=== PATIENT | female | born 1980 | race Caucasian/White ===

== ENCOUNTER 2018-10-23 10:55 | Emergency (ER) | payer SELFPAY ==
[2018-10-23] MEDS ORDERED: Diazepam 5 MG TAB ONE (11:27)
[2018-10-23] MEDS ORDERED: Ondansetron ODT 4 MG TAB ONE (11:31)
--- NOTE | 2018-10-23 12:04 | RAD ---
LEFT HIP 2 VIEWS: Date: 10/23/18 HISTORY: Pain. FINDINGS: No fracture, dislocation, or other acute process. IMPRESSION: Unremarkable left hip. POS: DEREK
[2018-10-23] MEDS ORDERED: Morphine 4 MG/ML VIAL ONE ×2 (13:06→17:14)
[2018-10-23] MEDS ORDERED: Dexamethasone 4 mg/ml Vial ONE (14:21)
[2018-10-23] MEDS ORDERED: Ketorolac Tromethamine 30 MG/ML VIAL ONE (14:22)
[2018-10-23 15:02] LABS: Bilirubin Negative (Negative); Blood, Urine Negative (Negative); Clarity Clear (Clear); Glucose, Urine (Dipstick) Normal (Negative); Leukocyte Negative Leu/uL (Negative); Nitrite Negative (Negative); Protein, Urine (Dipstick) Negative (Neg-Trace); Urobilinogen Normal mg/dL (Less than 2)
--- NOTE | 2018-10-23 17:45 | ULT ---
VENOUS DOPPLER ULTRASOUND LEFT LOWER EXTREMITY: History: Left lower extremity pain. Technique: Grayscale, color flow, and spectral doppler imaging of the deep venous system of the left lower extremity was performed. FINDINGS: There is good flow, compression, and augmentation in the left common femoral, femoral, deep femoral, popliteal and posterior tibial, and greater saphenous vein. IMPRESSION: No evidence of DVT in the left lower extremity. POS: DEREK
== END 2018-10-23 18:06 | disposition home or self-care (01) ==
LOC: ERS 10:55
DX: M25.552 Pain in left hip (principal)
CPT/HCPCS: 81003; 96374; 96375; 96376; J1100; J1885; J2270; Q0162

== ENCOUNTER 2018-10-24 16:19 | Inpatient (IN) | payer SELFPAY ==
[2018-10-24] MEDS ORDERED: Morphine 4 MG/ML VIAL ONE ×2 (17:16→20:17)
[2018-10-24] MEDS ORDERED: Ondansetron PF 4 MG/2 ML Vial ONE ×2 (17:16→23:24)
[2018-10-24 18:34] LABS: BHCG - Serum Negative (NEGATIVE); Pregs Control Background? CLEAR/WHITE (CLR/WHITE); Pregs Control Bar Appear? YES (CONTROL BAR)
[2018-10-24] MEDS ORDERED: Ketorolac Tromethamine 30 MG/ML VIAL ONE (18:47)
--- NOTE | 2018-10-24 20:04 | CT ---
LUMBAR SPINE CT WITHOUT IV CONTRAST: History: Low back pain. FINDINGS: No evidence for acute fracture or dislocation. Disc osteophytosis changes at L5-S1 with some indentio n of the ventral thecal sac. There is some associated bilateral foraminal stenosis. In the right pelvis there is a somewhat heterogeneous attenuation mass measuring 3.6 x 5.0 cm which a ppears to have some fluid or cystic component as well as a 1.5 cm diameter fatty component, evidence for a cystic dermoid or teratoma involving the right adnexa. IMPRESSION: No acute fracture or dislocation. Disc disease at L5-S1. Evidence for a right cystic dermoid or terat monty. POS: RRE
--- NOTE | 2018-10-24 22:42 | ULT ---
TRANSABDOMINAL AND TRANSVAGINAL PELVIC ULTRASOUND WITH GRAYSCALE, COLOR FLOW, AND SPECTRAL DOPPLER IM AGING: History: Abdominal CT scan of same date. FINDINGS: The uterus measures 10.7 x 4.4 x 6.5 cm without focal mass. The endometrium measures 13 mm in thickne ss. The left ovary measures 3.7 x 2.5 x 1.9 cm. The right ovary measures 4.8 x 4.2 x 4.5 cm. Flow is demo nstrated to both ovaries. A complex right ovary mass is present measuring 3.7 cm. The fatty component noted on the CT scan is not satisfactorily visualized on this study. IMPRESSION: Findings are suggestive of right ovarian dermoid. Further evaluation with pelvic MRI with and without contrast would be helpful. POS: DEREK
[2018-10-24 23:33] LABS: #Monocytes 0.1 thou/uL (0.11-0.59); #Neutrophils 9.4 thou/uL (1.40-6.50); %Basophils 0.1 % (0.0-1.0); %Eosinophils 0.1 % (0.0-10.0); %Lymphocytes 9.4 % (21.0-51.0); %Monocytes 0.6 % (0.0-10.0); %Neutrophils 89.7 % (42.0-75.0); Hemoglobin 12.3 g/dL (12.0-16.0); Mean Corpuscular HGB CONC 33.6 g/dL (32.0-36.0); Mean Corpuscular Hemoglobin 28.6 pg (27.0-31.0); Mean Corpuscular Volume 85.2 fL (78.0-98.0); Mean Platelet Volume 9.1 fL (7.4-10.4); Platelet Count 288 thou/uL (130-400); Red Blood Cell (RBC) Count 4.31 mill/uL (4.20-5.40); White Blood Cell (WBC) Count 10.5 thou/uL (4.8-10.8)
[2018-10-24] MEDS ORDERED: Ondansetron PF 4 MG/2 ML Vial IVP PRN (23:47)
[2018-10-24] MEDS ORDERED: Ondansetron ODT 4 MG TAB SL PRN (23:47)
[2018-10-24 23:48] LABS: ALT (SGPT) 23 U/L (8-55); AST (SGOT) 21 U/L (5-34); Albumin 4.2 g/dL (3.5-5.0); Alkaline Phosphatase 64 U/L (40-150); Anion Gap 13 mmol/L (10-20); BUN (Urea Nitrogen) 16 mg/dL (7.0-18.7); Bilirubin, Total 0.2 mg/dL (0.2-1.2); Calc. Creatinine Clearance 0 mL/min (70-130); Calcium 9.6 mg/dL (7.8-10.44); Carbon Dioxide 25 mmol/L (22-29); Chloride 105 mmol/L (98-107); Estimated GFR-MDRD 77; Globulin 3.1 g/dL (2.4-3.5); Glucose 100 mg/dL (70-105); Potassium 3.7 mmol/L (3.5-5.1); Protein, Total 7.3 g/dL (6.0-8.3); Sodium 139 mmol/L (136-145)
[2018-10-25] MEDS: Morphine 2 MG/ML SYRINGE SLOW IVP PRN ×4 (00:15→06:26)
[2018-10-25 00:44] VITALS: BMI 32.3
[2018-10-25] MEDS ORDERED: Ondansetron ODT 4 MG TAB PO PRN (08:13)
[2018-10-25] MEDS: Enoxaparin Sodium 40 MG/0.4 ML SYRINGE SC SCH (08:35)
[2018-10-25] MEDS: Morphine 4 MG/ML VIAL SLOW IVP PRN ×4 (08:35→21:50)
[2018-10-25] MEDS: Lidocaine 5% Patch TD SCH (09:23)
--- NOTE | 2018-10-25 10:11 | HP ---
PRIMARY CARE PHYSICIAN: None. CHIEF COMPLAINT: Intractable lower back, hip and leg pain. HISTORY OF PRESENT ILLNESS: Ms. Engle is a 38-year-old female without any past medical history, who had presented to [facility] late last night with an intractable lower back pain, left hip pain, and left leg pain. She was recently seen in the ER roughly 2 nights ago for this as well. She underwent an x-ray of her left hip, which was unremarkable. She also underwent an ultrasound of the left leg, which showed no evidence of DVT at that time. She was treated with various medications and this had seemed to improve. She was then stabilized and discharged home on naproxen, Medrol Dosepak, and Lidoderm patch along with Valium. She states throughout that next day, pain actually worsened. Therefore, she was re-seen in the ED late last night. She underwent a lumbar spine CT, which revealed no acute fracture or dislocation; however, did show some disk disease at L5 and S1 and evidence of a right cystic dermoid or teratoma noted. Transvaginal pelvic ultrasound showed findings suggestive of a right ovarian dermoid and had recommended a pelvic MRI with and without contrast for further evaluation. The patient was treated with IV morphine, Zofran, and Toradol in the ED late last night, which had seemed to help with her symptoms. She had denied any fever or chills; any headache, blurred vision, or dizziness; any chest pain, palpitations, shortness of breath, abdominal pain, nausea, or vomiting. She was actually complaining of 8/10 pain that started in her lower back and then radiated to the left hip and down the left leg. She states that she and her mother and her two daughters went on a [place] trip last month and were there for roughly 9 days as they were hiking and exploring the area. She states that the pain started roughly September 18; however, gradually got better for a few days while she was at work. However, over the last 4 to 5 days, she states that the pain worsened and has not let out. REVIEW OF SYSTEMS: All other systems reviewed and found to be negative unless mentioned in the HPI. PAST MEDICAL HISTORY: None. PAST SURGICAL HISTORY: section x2. PAST PSYCHIATRIC HISTORY: None. SOCIAL HISTORY: The patient denies alcohol, tobacco, or illicit drug use. She lives at home with her family. KNOWN ALLERGIES: Codeine and penicillin. CURRENT HOME MEDICATIONS: 1. Naproxen 500 mg oral twice daily p.r.n. pain. 2. Medrol Dosepak, which she actually did not finish. 3. Lidoderm patch topical daily. 4. Valium 5 mg oral every 8 hours as needed for muscle spasm. PHYSICAL EXAMINATION: VITAL SIGNS: BP 120/75, pulse 75, respirations 16, temp 98, O2 saturation 99% on room air. GENERAL: The patient is awake, alert, and oriented x3. She is currently lying comfortably in bed and in moderate distress due to pain and her mother is at bedside. HEENT: Atraumatic, normocephalic. Pupils are round and reactive to light. Extraocular muscles intact. Moist mucous membranes noted. NECK: Soft and supple. Trachea midline. CARDIOVASCULAR: Positive S1 and S2. Regular rate and rhythm. No murmur auscultated. RESPIRATORY: Clear to auscultation bilaterally. No wheezes, rales, or rhonchi. ABDOMEN: Soft, nontender. Bowel sounds present. MUSCULOSKELETAL: Strength 5+ bilaterally upper and lower extremities. She appears to be in quite a bit of pain, pain to palpation over left hip, and she is unable to move left leg due to pain. NEUROLOGIC: Cranial nerves 2 through 12 grossly intact. No deficits noted. Speech intact and normal. Gait not assessed. SKIN: Warm, dry, and intact. No rashes. No ulceration noted. PSYCHIATRIC: Good mood and affect. LABORATORY DATA: WBC 10.5, RBC 4.31, hemoglobin 12.3, platelets 288. Sodium 139, potassium 3.7, anion gap 13, BUN 16, creatinine 0.83, estimated GFR 77, glucose 100, AST 21, ALT 23. Serum negative. DIAGNOSTIC IMAGING STUDIES: CT spine without contrast showed no acute fracture or dislocation; however, did show some disk disease at L5-S1 with evidence of right cystic dermoid or teratoma noted. Pelvic transvaginal ultrasound showed findings of a right ovarian dermoid and had recommended further evaluation with pelvic MRI with and without contrast. Diagnostic imaging from 10/23/2018, venous Doppler showed no evidence of DVT. A left hip x-ray was unremarkable. ASSESSMENT/PLAN: 1. Intractable lower back and left hip pain. She will be managed with her current pain regimen including IV morphine 4 mg q.4 hours IV Toradol 30 mg and topical lidocaine patch daily. 2. Ovarian dermoid. We will order an MRI with and without contrast of the pelvis for further evaluation. She will likely also benefit from an COMPLIANCE PARALEGAL consult in the near future. 3. Deep venous thrombosis and gastrointestinal prophylaxis. 4. Code status, full code. DISPOSITION: Pending further workup and clinical findings. However, the patient will likely be discharged in the next 1 to 2 days home with close outpatient followup, she will also need further resources for possible PCPs in the area for followup. Job ID: [id number]
[2018-10-25] MEDS: Ketorolac Tromethamine 30 MG/ML VIAL IVP PRN (11:49)
[2018-10-25] MEDS: Acetaminophen 325 MG TAB PO PRN ×2 (11:49→17:24)
--- NOTE | 2018-10-25 12:49 | MRI ---
MRI OF THE PELVIS WITH AND WITHOUT CONTRAST: INDICATION: History of uterine dermoid. COMPARISON: Pelvic ultrasound dated October 24, 2018. FINDINGS: There is a complex 5.9 x 4.4 cm cystic mass involving the right adnexa with a component that has inte rnal fat signal measuring 2.3 cm. This lesion has internal fat signal through all pulse and sequences. Findings are consistent with a dermoid cyst. There is susceptibility artifact along the an terior aspect of the lower uterine body likely related to prior or surgical intervention in this region. There are numerous nabothian cysts within the cervix. No focal uterine mass is eviden t. Left ovary demonstrates multiple small follicles. No pathologically enlarged lymph node is grossly evident. No free fluid is noted. There is a mild amount retained stool within the rectum. No signal abnormality or region of abnormal enhancement is noted within the visualized bony structures. IMPRESSION: Complex cystic mass of the right adnexa demonstrates imaging characteristics most consistent with a d ermoid cyst. Transcribed Date/Time: 10/25/2018 1:24 PM
[2018-10-25] MEDS: Ondansetron PF 4 MG/2 ML Vial IVP PRN ×2 (12:58→20:19)
[2018-10-25] MEDS ORDERED: HYDROcodone/Acetaminophen 5/325 mg Tablet PO PRN (14:10)
[2018-10-25] MEDS: Lidocaine Patch Removal 1 EACH TOP SCH (20:20)
[2018-10-26] MEDS: Morphine 4 MG/ML VIAL SLOW IVP PRN ×5 (03:10→20:05)
[2018-10-26] MEDS: Ondansetron PF 4 MG/2 ML Vial IVP PRN ×2 (03:15→11:59)
[2018-10-26] MEDS: Acetaminophen 325 MG TAB PO PRN ×2 (05:50→09:49)
[2018-10-26 06:01] LABS: #Eosinphils 0.2 thou/uL (0.0-0.7); #Lymphocytes 1.9 thou/uL (1.20-3.40); #Monocytes 0.5 thou/uL (0.11-0.59); #Neutrophils 3.1 thou/uL (1.40-6.50); %Basophils 0.6 % (0.0-1.0); %Eosinophils 4.2 % (0.0-10.0); %Lymphocytes 32.5 % (21.0-51.0); %Monocytes 8.6 % (0.0-10.0); %Neutrophils 54.1 % (42.0-75.0); Hemoglobin 11.2 g/dL (12.0-16.0); Mean Corpuscular HGB CONC 32.1 g/dL (32.0-36.0); Mean Corpuscular Hemoglobin 27.6 pg (27.0-31.0); Mean Corpuscular Volume 86.1 fL (78.0-98.0); Mean Platelet Volume 8.8 fL (7.4-10.4); Platelet Count 273 thou/uL (130-400); RBC Distribution Width 13.8 % (11.5-14.5); Red Blood Cell (RBC) Count 4.04 mill/uL (4.20-5.40); White Blood Cell (WBC) Count 5.8 thou/uL (4.8-10.8)
[2018-10-26 06:26] LABS: Anion Gap 12 mmol/L (10-20); BUN (Urea Nitrogen) 12 mg/dL (7.0-18.7); Calc. Creatinine Clearance 144 mL/min (70-130); Calcium 9.4 mg/dL (7.8-10.44); Carbon Dioxide 26 mmol/L (22-29); Chloride 103 mmol/L (98-107); Estimated GFR-MDRD 86; Glucose 79 mg/dL (70-105); Potassium 3.4 mmol/L (3.5-5.1); Sodium 138 mmol/L (136-145)
[2018-10-26] MEDS: Lidocaine 5% Patch TD SCH (09:00)
[2018-10-26] MEDS: Enoxaparin Sodium 40 MG/0.4 ML SYRINGE SC SCH (09:00)
--- NOTE | 2018-10-26 11:34 | PDOC.HOSPP ---
- Subjective Encounter Date: 10/26/18 Encounter Time: 11:20 Subjective: Back pain with lumbar radiculopathy unchanged. Pain 10/10, worse with movement , better with rest, unable to bear weight left leg. Pain associated with constant nausea. No saddle anesthesia, no incontinence of bowel or bladder, no fever. Pain extends into foot, sharp and lancillating in nature. - Objective Vital Signs & Weight: Vital Signs (12 hours) Temp Pulse Resp BP Pulse Ox 10/26/18 11:12 98.4 F 69 15 130/79 94 L 10/26/18 07:45 98 10/26/18 07:25 98.6 F 63 18 134/81 98 10/26/18 02:51 98.5 F 76 16 145/86 H 97 10/25/18 23:36 99 F 69 16 124/84 96 Weight Weight 200 lb I&O: 10/25/18 10/26/18 10/27/18 06:59 06:59 06:59 Intake Total 510 486 Balance 510 486 Result Diagrams: 10/26/18 05:45 10/26/18 05:45 Hospitalist ROS - Medication Medications: Active Medications Generic Name Dose Route Start Last Admin Trade Name Freq PRN Reason Stop Dose Admin Acetaminophen 650 mg 10/25/18 08:13 10/26/18 09:49 Tylenol PO 650 mg Q4H PRN Administration Headache/Fever/Mild Pain (1-3) Hydrocodone Bitart/Acetaminophen 1 tab 10/25/18 14:10 10/25/18 14:42 [place] 5/325 PO 1 tab Q4H PRN Administration Pain Enoxaparin Sodium 40 mg 10/25/18 09:00 10/26/18 09:00 Lovenox SC 40 mg 0900 FERNANDO Administration Ketorolac Tromethamine 30 mg 10/25/18 08:15 10/25/18 11:49 Toradol IVP 10/30/18 08:16 30 mg Q6H PRN Administration Pain Lidocaine 1 patch 10/25/18 09:00 10/26/18 09:00 Lidoderm 5% Patch TD Not Given DAILY [facility] [place] Miscellaneous Medication 1 each 10/25/18 21:00 10/25/18 20:20 Lidocaine Patch Removal TOP 1 each 2100 FERNANDO Administration Morphine Sulfate 4 mg 10/25/18 08:14 10/26/18 07:46 Morphine SLOW IVP 4 mg Q4H PRN Administration Pain Ondansetron HCl 4 mg 10/25/18 08:13 10/26/18 03:15 Zofran IVP 4 mg Q6H PRN Administration Nausea/Vomiting - Exam General - other findings: Uncomfortable, writhing in pain Eye: scleral icterus ENT: no oropharyngeal lesions Neck: supple, symmetric Heart: RRR Respiratory: CTAB Gastrointestinal: soft, non-tender Extremities: no edema Skin: no rashes Neurological: normal sensation to touch Neurological - other findings: Limited plantar flexion left foot secondary to pain. Sensation intact Psychiatric: A&O x 3 Hosp A/P (1) Lumbar radiculopathy, acute Code(s): M54.16 - RADICULOPATHY, LUMBAR REGION Status: Acute (2) Dermoid cyst Code(s): D36.9 - BENIGN NEOPLASM, UNSPECIFIED SITE Status: Acute (3) Nausea Code(s): R11.0 - NAUSEA Status: Acute - Plan plan discussed w/ family Acute/severe lumbar radiculopathy - MRI Lumbar/Sacral spine with/without; pending results, may need input of NS and/or pain. Continue medical trial to alleviate pain, try robaxin. Steroids were given from ED visit as well. Trial decadron. Nausea secondary to pain, treat symptomatically. No red flag symptoms on history giving. 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
[2018-10-26] MEDS ORDERED: Dexamethasone 10 MG in Sodium Chloride 0.9% 50 ML IVPB SCH (12:30)
--- NOTE | 2018-10-26 14:11 | MRI ---
MR OF THE LUMBAR SPINE WITH AND WITHOUT IV CONTRAST: 10/26/18 INDICATION: Increase in low back pain with radiation of the left hip down the left leg for two to three weeks wit hout history of surgery. CONTRAST: 20 mL of Multihance was utilized for the exam. The visualized aspects of the retroperitoneum and perivertebral soft tissues appear within normal thurman its. Bone marrow signal intensity appears within normal limits. At L5-S1, there is a broad based bulge with a superimposed left paracentral protrusion. The protrusio n measures approximately 1 cm in AP dimension and likely contacts and mildly displaces posteriorly t he traversing left S1 nerve root. There is mild to moderate bilateral neural foraminal narrowing due to the broad based disc bulge and facet hypertrophy at this level. At the L4-5 level, there is no appreciable central canal or neural foraminal narrowing. At L3-4, there is no appreciable central canal or neural foraminal narrowing. At L2-3, there is no appreciable central canal or neural foraminal narrowing. At L1-2, there is no appreciable central canal or neural foraminal narrowing. At T12-L1, there is a left cephalad extending paracentral disc extrusion measuring approximately 1.4 cm in its greatest craniocaudad dimension causing mild effacement of the left ventral aspect of the s ubarachnoid space without definite conus impingement. No neural foraminal narrowing is evident. There is no abnormal enhancement. IMPRESSION: 1. Large left paracentral disc protrusion at L5-S1 contacting the left S1 nerve root and displac ing the nerve root posteriorly. 2. Mild to moderate bilateral neural foraminal narrowing at L5-S1. 3. Left paracentral cephalad extending disc extrusion at T12-L1 with mild ventral effacement of the subarachnoid space without definite conus compression. POS: TPC
[2018-10-26] MEDS: Methocarbamol 500 MG TAB PO PRN ×2 (14:52→21:01)
[2018-10-26] MEDS ORDERED: Gadobenate Dimeglumine 529 MG/1 ML (20ML VIAL) ONE (16:50)
[2018-10-26] MEDS: Lidocaine Patch Removal 1 EACH TOP SCH (20:11)
[2018-10-27] MEDS: Morphine 4 MG/ML VIAL SLOW IVP PRN ×3 (01:33→09:25)
[2018-10-27] MEDS: Methocarbamol 500 MG TAB PO PRN (02:57)
[2018-10-27] MEDS ORDERED: Dexamethasone 10 MG in Sodium Chloride 0.9% 50 ML IVPB SCH (09:00)
[2018-10-27] MEDS: Lidocaine 5% Patch TD SCH (09:19)
[2018-10-27] MEDS ORDERED: Iopamidol-M 200 41% 20 ML VIAL ONE (10:00)
[2018-10-27] MEDS ORDERED: Bupivacaine 0.25% 10 ML VIAL ONE (10:00)
[2018-10-27] MEDS ORDERED: Lidocaine 2% MPF 10 ML AMP (For Epidural Use) ONE (10:00)
[2018-10-27] MEDS ORDERED: Sodium Chloride 0.9% (PF) 10 ML VIAL ONE (10:00)
[2018-10-27] MEDS ORDERED: tiZANidine HCl 4 MG TAB PO PRN (11:37)
[2018-10-27] MEDS ORDERED: Morphine 2 MG/ML SYRINGE SLOW IVP PRN (11:39)
[2018-10-27] MEDS ORDERED: Diazepam 5 MG TAB PO PRN (12:20)
--- NOTE | 2018-10-27 12:52 | CON ---
DATE OF CONSULTATION: Ms. Engle is a 38-year-old woman, who was admitted yesterday for severe intractable left-sided back pain and radicular left lower extremity pain. This primarily courses through her left buttocks and into the posterior thigh down the calf and into the bottom of the foot. This fits well in S1 pattern of radiculopathy. She did have an MRI performed in-house yesterday, which reveals a small left eccentric disk herniation that is displacing the descending S1 nerve root. By no means, this is a large disk, but it does well explain the symptoms that she is experiencing. She states this onset was around the end of August this year after a vacation and then improved, but over the last week has returned and she has already had one ER visit before yesterday's for the same symptoms. This morning, she is lying in bed the bed rails and in obvious pain. Lying back seems to be what helps her the most with her symptoms. She has a cooling pack in the left leg as well as sizing of this seems to help. She is unable to perform her motor exam for me secondary to pain, but does show me that she can wiggle her toes and dorsiflex and plantar flex. The strength is not tested again secondary to severe pain. She has been sedated with 5 mg [place] q.4 hours as well as morphine q.4 hours. In the past, she received Decadron daily. I do think perhaps that she could have a little more while in terms of the [place] dosage to see if she can have better pain control there, but best recommend a consultation with the Pain Service, which has already been ordered for potential epidural steroid injection to the left at L5. I truly think that this would be of the most benefit for her both in the acute setting and long-term as again this is a smaller disk herniation and certainly may not need surgical intervention. I did discuss with them the possibility of needing surgery if things fail, at which point we may perform in the outpatient setting a left L5 diskectomy. Plan will be to have her hopefully visit with Pain today, potentially receive an epidural steroid injection and then we can follow up in the clinic. Job ID: [id number]
--- NOTE | 2018-10-27 17:03 | PDOC.HOSPP ---
- Subjective Encounter Date: 10/27/18 Encounter Time: 16:25 Subjective: Patient seen following ANGEL. Appreciate all consultants care. Pain /, has not yet walked. No nausea presently. Reports nausea with Jackson. Tramadol previously did not help her. Reports some interval relief with muscle relaxers, hopes to schedule these to maintain current pain level overnight. - Objective Vital Signs & Weight: Vital Signs (12 hours) Temp Pulse Resp BP Pulse Ox 10/27/18 15:01 98.5 F 71 20 99/65 94 L 10/27/18 11:44 97.8 F 68 16 135/87 93 L 10/27/18 07:37 98.6 F 72 16 130/79 93 L Weight Weight 200 lb I&O: 10/26/18 10/27/18 10/28/18 06:59 06:59 06:59 Intake Total 486 1800 Balance 486 1800 Result Diagrams: 10/26/18 05:45 10/26/18 05:45 Hospitalist ROS - Medication Medications: Active Medications Generic Name Dose Route Start Last Admin Trade Name Freq PRN Reason Stop Dose Admin Acetaminophen 650 mg 10/25/18 08:13 10/26/18 09:49 Tylenol PO 650 mg Q4H PRN Administration Headache/Fever/Mild Pain (1-3) Ketorolac Tromethamine 30 mg 10/25/18 08:15 10/25/18 11:49 Toradol IVP 10/30/18 08:16 30 mg Q6H PRN Administration Pain Lidocaine 1 patch 10/25/18 09:00 10/27/18 09:19 Lidoderm 5% Patch TD 1 patch DAILY FERNANDO Administration Miscellaneous Medication 1 each 10/25/18 21:00 10/26/18 20:11 Lidocaine Patch Removal TOP Not Given 2100 FERNANDO Morphine Sulfate 4 mg 10/25/18 08:14 10/27/18 09:25 Morphine SLOW IVP 4 mg Q4H PRN Administration Pain Morphine Sulfate 2 mg 10/27/18 11:39 10/27/18 12:31 Morphine SLOW IVP 10/27/18 18:00 2 mg ONE PRN Administration PRIOR TO TRANSPORT Ondansetron HCl 4 mg 10/25/18 08:13 10/26/18 11:59 Zofran IVP 4 mg Q6H PRN Administration Nausea/Vomiting Sodium Chloride 10 ml 10/26/18 21:00 10/27/18 09:26 Flush - Normal Saline IVF 10 ml Q12HR FERNANDO Administration - Exam General - other findings: Resting, calm, reasonably comfortable, room dark. Eye: PERRL ENT: normocephalic atraumatic Neck: supple Heart: RRR Respiratory: CTAB Gastrointestinal: soft, non-tender Extremeties - other findings: Able to plantar flex today, though still with pain Skin: no rashes Neurological: no weakness, no new deficit Hosp A/P (1) Lumbar radiculopathy, acute Code(s): M54.16 - RADICULOPATHY, LUMBAR REGION Status: Acute (2) Dermoid cyst Code(s): D36.9 - BENIGN NEOPLASM, UNSPECIFIED SITE Status: Acute (3) Nausea Code(s): R11.0 - NAUSEA Status: Acute - Plan Acute/severe lumbar radiculopathy - MRI Lumbar/Sacral spine reviewed, appreciate NS input and pain management input with ANGEL. Presently on lyrica, percocet, tizanidine (will schedule for next several doses) , morphine for breakthrough, toradol available. Zofran helpful for her. Consult PT in AM. 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 Remains in observation status, goal home 10/28
[2018-10-27] MEDS: oxyCODONE/Acetaminophen 5 mg/325 mg Tablet PO PRN ×2 (17:13→21:21)
[2018-10-27] MEDS: tiZANidine HCl 4 MG TAB PO SCH ×2 (17:13→23:37)
--- NOTE | 2018-10-27 18:56 | OP ---
DATE OF PROCEDURE: 10/27/2018 PROCEDURES PERFORMED: Left L5 and S1 transforaminal epidural steroid injection under fluoroscopic guidance. DESCRIPTION OF PROCEDURE: Informed consent: The patient was advised of the procedure and informed of potential complications including pain, infection, drug reaction, and bleeding. The patient denied recent infection or fever, use of any recent anticoagulation or . Prep: The patient was placed in a prone position on fluoroscopy table. Fluoroscopic guidance was used to identify the appropriate spinal levels as noted above. Hibiclens was used topically for antisepsis. Anesthesia provided with 1% lidocaine locally. Procedures performed at the L5 and S1 levels on the left side. Procedure: A 25-gauge Chiba needle was passed to the foramen using an oblique approach. A lateral view was checked to determine needle depth and advanced to superior posterior aspect of the foramen. In AP projection, confirmed placement just below the midline pedicle. Contrast 2 mL was injected to confirm proper placement. Depo-Medrol 80 mg, 1 mL of 0.25% Marcaine, and preservative free normal saline, total volume 6 mL was injected easily and equally amongst the two levels. Postprocedure, the patient tolerated the procedure well without any complication. Job ID: [id number]
[2018-10-27] MEDS: Lidocaine Patch Removal 1 EACH TOP SCH (20:03)
[2018-10-27] MEDS: Pregabalin 75 MG CAP PO SCH (20:03)
--- NOTE | 2018-10-28 00:46 | CON ---
DATE OF CONSULTATION: 10/27/2018 SERVICE: Pain Management. REASON FOR CONSULTATION: Intractable left-sided low back pain associated with left leg pain. HISTORY OF PRESENT ILLNESS: Ms. Engle is a 38-year-old female with no significant past medical history, who was admitted through the emergency room services on 10/24/2018 for intractable low back pain associated with left lower extremity leg pain, which was limiting functional activities at home. The patient reports on September 18, she noticed an increasing low back pain suddenly that was associated with some left lateral hip pain and intermittent leg pain that started after a long car ride on vacation. The pain seemed to subside in the next few weeks; however, approximately one week ago on October 22, the pain recurred and was severe. She was not able to stand or walk secondary to the pain. She reports the pain was sharp, stabbing, constant, and radiating from the left lower lumbar towards the left lateral hip down the posterior left leg all the way into the bottom of the left foot. She was unable to bear weight on the left leg secondary to the pain and weakness and is still limited to ambulation and standing. She denies any bowel or bladder dysfunction. No progressive neurological deficits were reported and no recent falls or acute trauma is reported. She was evaluated in the ER and sent home with oral steroids as well as NSAIDs and muscle relaxants with no relief. The pain became severe and she returned to the emergency room the next day thus leading to her current admission. Lumbar MRI has been performed, which indicates left paracentral disk protrusion at L5-S1 that is likely contacting the left S1 nerve root and displacing the nerve root posteriorly, there is also some mild to moderate bilateral neuroforaminal narrowing at L5-S1. Neurosurgery has been consulted and has seen the patient already, has been recommended for interventional epidural treatment and attempt for pain control prior to any surgical intervention. The patient is evaluated today in her bed. She appears to be extremely uncomfortable. She lays flat and is almost tearful due to her pain. Her mother is with her to assist with history of present illness and also with her care. She is currently getting IV morphine 4 mg IV push as needed, which she reports this provides some relief; however, it is not lasting for her. She has been medicated with oral hydrocodone x1 and reports this made her nauseated. Muscle relaxants have been ordered, Robaxin, but not administered yet. She is getting IV steroids as well. Her pain is reported at 10/10 and is constant. She has not been able to get up out of bed secondary to the pain and weakness. REVIEW OF SYSTEMS: Ten-point review of systems was completed, negative except for pertinent positive in the history of present illness above. PAST MEDICAL HISTORY: Negative. PAST SURGICAL HISTORY: She has had a section x2. PAST SOCIAL HISTORY: The patient denies any alcohol use, no tobacco use or illicit drug use. She lives at home with her family and has children. ALLERGIES: INCLUDE CODEINE AND PENICILLIN. MEDICATIONS: Current medications are reviewed, pain medications below 1. IV morphine. 2. Oral hydrocodone. 3. Robaxin has been ordered, not administered for her pain. PHYSICAL EXAMINATION: VITAL SIGNS: Blood pressure is 130/79, heart rate is 93, respirations 16, and temperature is 98.6. GENERAL APPEARANCE: The patient is awake, alert, and oriented x3. Her mother is at her bedside. She is lying flat in bed, gripping the handrails, appears to be in severe pain, tearful. HEENT: Atraumatic, normocephalic. CARDIOVASCULAR: No peripheral edema. Pulses are palpable in all extremities. RESPIRATORY: Bilateral, equal lung expansion with no respiratory distress on exam, no labored breathing. ABDOMEN: Soft, nontender, nondistended. MUSCULOSKELETAL: The patient is able to logroll with assist onto her right side for exam, lumbar spine with normal curvature of spine, no vertebral spine tenderness on exam, there is severe paraspinal tenderness greater on the left versus right, no SI joint tenderness, positive straight leg raise on the left from the supine position. Right lower extremity strength 5/5, left straight leg raise against resistance 3 /5. There is pain on the left dorsiflexion and plantar flexion with some limitations in strength, 4/5. Sensation to temperature and touch bilaterally is equal to lower extremities and intact. Gait is not assessed due to her pain and immobility. Reflex is not assessed. The patient unable to sit in the side of the bed. Bilateral upper extremity strength is 5/5. NEUROLOGIC: The patient is alert and oriented x3, no clonus, no sensory or neurological deficits. IMAGING: Includes lumbar MRI which indicates left paracentral disk protrusion at L5-S1, which appears to be contacting the left S1 nerve root with possible displacement of the nerve root posteriorly. There is mild to moderate bilateral neuroforaminal narrowing at L5-S1, also noticed a left paracentral cephalad extending disk extrusion at the T12-L1. ASSESSMENT AND PLAN: Lumbar radicular pain in the left L5-S1 dermatomal distribution with MRI indicating left paracentral disk protrusion at L5-S1 that contacting the left S1 nerve root. The patient's pain has been uncontrolled with IV and oral medications at this time. The patient has been evaluated by Neurosurgery and interventional epidural steroid injection has been recommended. Plan to undergo transforaminal ANGEL on the left at L5-S1 today versus interlaminar L5-S1. The patient may benefit from second LES in 2 weeks on outpatient basis dependent on her relief from the first injection. Plan is to start neuropathic medications including Lyrica 75 one tablet p.o. b.i.d. Discontinue Robaxin, start tizanidine 4 mg tablet one by mouth three times a day. Discontinue hydrocodone as the patient has had an adverse reaction with nausea to the medications, start Percocet 5/325 mg tablets one by mouth q.6 hours as needed for moderate to severe pain. Plan to continue IV morphine push as needed for moderate to severe pain. Plan will be to transition to all oral medications by the a.m. depending on relief from epidural steroid injection. Further recommendations to follow in the a.m. based on her pain relief, Job ID: [id number] [facility]
[2018-10-28] MEDS: oxyCODONE/Acetaminophen 5 mg/325 mg Tablet PO PRN ×5 (01:25→21:52)
[2018-10-28] MEDS: tiZANidine HCl 4 MG TAB PO SCH ×4 (05:28→23:31)
[2018-10-28] MEDS: Pregabalin 75 MG CAP PO SCH ×2 (09:32→21:47)
[2018-10-28] MEDS: Lidocaine 5% Patch TD SCH (09:34)
--- NOTE | 2018-10-28 11:05 | PDOC.HOSPP ---
- Subjective Encounter Date: 10/28/18 Encounter Time: 11:04 Subjective: Admitted due to worsening back pain with radiation down left lower extremity. Pain and decreased range of motion of left lower extremity persists. No BM for several days. - Objective Vital Signs & Weight: Vital Signs (12 hours) Temp Pulse Resp BP Pulse Ox 10/28/18 08:00 97.9 F 54 L 14 146/87 H 94 L 10/28/18 03:28 98.3 F 63 18 98/63 94 L 10/27/18 23:38 98.3 F 76 18 95/61 93 L Weight Weight 200 lb I&O: 10/27/18 10/28/18 10/29/18 06:59 06:59 06:59 Intake Total 1800 520 Balance 1800 520 Result Diagrams: 10/26/18 05:45 10/26/18 05:45 Hospitalist ROS - Medication Medications: Active Medications Generic Name Dose Route Start Last Admin Trade Name Freq PRN Reason Stop Dose Admin Acetaminophen 650 mg 10/25/18 08:13 10/26/18 09:49 Tylenol PO 650 mg Q4H PRN Administration Headache/Fever/Mild Pain (1-3) Ketorolac Tromethamine 30 mg 10/25/18 08:15 10/25/18 11:49 Toradol IVP 10/30/18 08:16 30 mg Q6H PRN Administration Pain Lidocaine 1 patch 10/25/18 09:00 10/28/18 09:34 Lidoderm 5% Patch TD 1 patch DAILY FERNANDO Administration Miscellaneous Medication 1 each 10/25/18 21:00 10/27/18 20:03 Lidocaine Patch Removal TOP 1 each 2100 FERNANDO Administration Morphine Sulfate 4 mg 10/25/18 08:14 10/27/18 09:25 Morphine SLOW IVP 4 mg Q4H PRN Administration Pain Ondansetron HCl 4 mg 10/25/18 08:13 10/26/18 11:59 Zofran IVP 4 mg Q6H PRN Administration Nausea/Vomiting Oxycodone/Acetaminophen 1 tab 10/27/18 11:39 10/28/18 09:32 Percocet 5/325 PO 1 tab Q4H PRN Administration Pain Pregabalin 75 mg 10/27/18 21:00 10/28/18 09:32 Lyrica PO 75 mg BID FERNANDO Administration Sodium Chloride 10 ml 10/26/18 21:00 10/28/18 09:32 Flush - Normal Saline IVF 10 ml Q12HR FERNANDO Administration Tizanidine HCl 4 mg 10/27/18 18:00 10/28/18 05:28 Zanaflex PO 4 mg Q6HR FERNANDO Administration - Exam General Appearance: awake alert General - other findings: obese Eye: PERRL, anicteric sclera ENT: normocephalic atraumatic Neck: supple, symmetric, no JVD Heart: RRR Respiratory: no wheezes, no rales, no ronchi, normal chest expansion, no tachypnea Gastrointestinal: soft, non-tender, non-distended, normal bowel sounds Gastrointestinal - other findings: obese Extremities: no cyanosis, no edema Neurological: CN's grossly intact Neurological - other findings: Decresaed movement of left lowere limb due to pain. Psychiatric: normal affect, A&O x 3 Hosp A/P (1) Acute left lumbar radiculopathy Code(s): M54.16 - RADICULOPATHY, LUMBAR REGION Status: Acute (2) Severe lumbar pain Code(s): M54.5 - LOW BACK PAIN Status: Acute (3) Dermoid cyst of ovary Status: Acute (4) Constipation Code(s): K59.00 - CONSTIPATION, UNSPECIFIED Status: Acute - Plan pain management as per pain specialist. give duloclax suppository. Start bowel regimen DVT prophylaxis addressed.
[2018-10-28] MEDS ORDERED: Bisacodyl 10 MG SUPP PR SCH (11:15)
--- NOTE | 2018-10-28 16:02 | PRG ---
DATE OF SERVICE: 10/28/2018 SERVICE: Pain Management. SUBJECTIVE: The patient reports 40% relief from lumbar TFESI on the left at L5-S1 yesterday. Pain reported today is 7/10. The patient is still unable to stand or ambulate secondary to the pain and weakness in the left lower extremity. Continues to report left lower extremity radicular pain in L5-S1 distribution today. She has had no IV morphine in the last 12 hours. She reports the Percocet 5/325 mg tablet improves the pain up to 50%, still having considerable amount of breakthrough pain, however. The patient reports tolerating the Lyrica 75 mg tablet b.i.d., as well as the muscle relaxants. She does report constipation, last bowel movement was over a week ago. OBJECTIVE: VITAL SIGNS: Blood pressure is stable at 146/87, temperature is 97.9, heart rate is 54, she is 94% on room air. Pain is 7/10. GENERAL APPEARANCE: The patient is awake, alert, and oriented x3. She continues to lie flat in bed, resting. She appears to have some pain with movement; however, overall, she appears much more comfortable than she was yesterday. HEENT: Atraumatic and normocephalic. CARDIOVASCULAR: No peripheral edema. Pulses are palpable in all extremities. RESPIRATORY: Bilateral, equal lung expansion with no respiratory distress on exam. No labored breathing. ABDOMEN: Soft, nontender, and nondistended. MUSCULOSKELETAL: The patient continues to be able to log roll with assist onto her right side. Lumbar spine with normal curvature of spine. No vertebral spine tenderness on exam. There is moderate paraspinal tenderness on the left. No right side joint tenderness. Positive straight leg raise on the left in the supine position at 30 degrees. Right lower extremity strength is 5/5. Left straight leg raise against resistance is 3/5 with [id number] pain reported. Pain with left dorsiflexion and plantarflexion, strength is 4/5. Sensation to temperature and touch bilaterally is intact and equal. Reflex, not assessed. Gait is not assessed due to the patient's inability to sit on the side of bed or stand or ambulate. Bilateral upper extremity strength is intact, 5/5. NEUROLOGIC: The patient is alert and oriented x3. No clonus. No sensory or neurological deficits. ASSESSMENT AND PLAN: Lumbar radicular pain/the patient is status post transforaminal epidural steroid injection on the left L5-S1 24 hours ago with 40% relief of improvement reported. Still continues to have pain that limits functional ambulation and activities of daily living functions. Plan to continue neuropathic medications and muscle relaxants as well as narcotics. Plan to increase Percocet from 5/325 mg tablets to 10/325 mg tablets 1 p.o. q.6 to try to maximize oral medication to facilitate discharge home. Appreciate neurosurgeon input again today as this could take 24 to 72 hours for relief from her epidural steroid injection. If the patient's pain improves and she is tolerating ambulation and activities of daily living, it is okay to discharge home from a Pain Management standpoint. The patient will need outpatient followup in the clinic in a week for possible second transforaminal epidural steroid injection at L5-S1 with Dr. Vieyra. Job ID: [id number]
[2018-10-28] MEDS: Lidocaine Patch Removal 1 EACH TOP SCH (21:54)
[2018-10-29] MEDS: tiZANidine HCl 4 MG TAB PO SCH ×3 (06:01→18:28)
[2018-10-29] MEDS: oxyCODONE/Acetaminophen 5 mg/325 mg Tablet PO PRN ×3 (07:12→18:28)
[2018-10-29] MEDS: Pregabalin 75 MG CAP PO SCH ×2 (09:09→20:07)
[2018-10-29] MEDS: Lidocaine 5% Patch TD SCH (09:09)
[2018-10-29] MEDS: Enoxaparin Sodium 40 MG/0.4 ML SYRINGE SC SCH (09:10)
--- NOTE | 2018-10-29 12:27 | PDOC.HOSPP ---
- Subjective Encounter Date: 10/29/18 Encounter Time: 08:30 Subjective: this morning she did not took pain meds and after that she had therapy and when I saw at that time she was having severe pain - Objective Vital Signs & Weight: Vital Signs (12 hours) Temp Pulse Resp BP Pulse Ox 10/29/18 08:56 98.1 F 53 L 16 117/82 94 L 10/29/18 03:58 97.9 F 62 16 107/73 94 L Weight Weight 200 lb I&O: 10/28/18 10/29/18 10/30/18 06:59 06:59 06:59 Intake Total 520 1659 Balance 520 1659 Result Diagrams: 10/26/18 05:45 10/26/18 05:45 Radiology Reviewed by me: Yes Hospitalist ROS - Review of Systems ENT: denies: ear pain, ear discharge, nose pain, nose discharge, nose congestion , mouth pain, mouth swelling, throat pain, throat swelling, other Respiratory: denies: cough, dry, shortness of breath, hemoptysis, SOB with excertion, pleuritic pain, sputum, wheezing, other Cardiovascular: denies: chest pain, palpitations, orthopnea, paroxysmal noc. dyspnea, edema, light headedness, other Gastrointestinal: denies: nausea, vomitting, abdominal pain, diarrhea, constipation, melena, hematochezia, other Genitourinary: denies: dysuria, frequency, incontinence, hematuria, retention, other Musculoskeletal: reports: back pain, leg pain. denies: neck pain, shoulder pain , arm pain, hand pain, foot pain, other Skin: denies: rash, lesions, laura, bruising, other - Medication Medications: Active Medications Generic Name Dose Route Start Last Admin Trade Name Freq PRN Reason Stop Dose Admin Acetaminophen 650 mg 10/25/18 08:13 10/26/18 09:49 Tylenol PO 650 mg Q4H PRN Administration Headache/Fever/Mild Pain (1-3) Enoxaparin Sodium 40 mg 10/29/18 09:00 10/29/18 09:10 Lovenox SC 40 mg 0900 FERNANDO Administration Ketorolac Tromethamine 30 mg 10/25/18 08:15 10/25/18 11:49 Toradol IVP 10/30/18 08:16 30 mg Q6H PRN Administration Pain Lidocaine 1 patch 10/25/18 09:00 10/29/18 09:09 Lidoderm 5% Patch TD 1 patch DAILY FERNANDO Administration Miscellaneous Medication 1 each 10/25/18 21:00 10/28/18 21:54 Lidocaine Patch Removal TOP Not Given 2100 FERNANDO Miscellaneous Medication 25 mg 10/29/18 09:00 10/29/18 09:09 Movantik PO 25 mg DAILY FERNANDO Administration Morphine Sulfate 4 mg 10/25/18 08:14 10/27/18 09:25 Morphine SLOW IVP 4 mg Q4H PRN Administration Pain Ondansetron HCl 4 mg 10/25/18 08:13 10/26/18 11:59 Zofran IVP 4 mg Q6H PRN Administration Nausea/Vomiting Oxycodone/Acetaminophen 1 tab 10/28/18 11:47 10/29/18 07:12 Percocet 5/325 PO 1 tab Q6H PRN Administration Pain Pregabalin 75 mg 10/27/18 21:00 10/29/18 09:09 Lyrica PO 75 mg BID FERNANDO Administration Sodium Chloride 10 ml 10/26/18 21:00 10/29/18 09:14 Flush - Normal Saline IVF 10 ml Q12HR FERNANDO Administration Tizanidine HCl 4 mg 10/27/18 18:00 10/29/18 06:01 Zanaflex PO 4 mg Q6HR FERNANDO Administration - Exam General Appearance: awake alert Eye: PERRL, anicteric sclera ENT: normocephalic atraumatic, no oropharyngeal lesions Neck: supple, symmetric, no JVD, no thyromegaly Heart: RRR, no murmur, no gallops Respiratory: CTAB, no wheezes, no rales, no ronchi Gastrointestinal: soft, non-tender, non-distended, normal bowel sounds Extremities: no cyanosis, no clubbing, no edema Skin: normal turgor, no lesions Neurological: no focal deficits Musculoskeletal: normal tone, normal strength Psychiatric: normal affect, normal behavior Hosp A/P (1) Acute left lumbar radiculopathy Code(s): M54.16 - RADICULOPATHY, LUMBAR REGION Status: Acute (2) Obesity (BMI 30.0-34.9) Code(s): E66.9 - OBESITY, UNSPECIFIED Status: Chronic (3) Constipation Code(s): K59.00 - CONSTIPATION, UNSPECIFIED Status: Resolved - Plan old records reviewed/req, plan discussed w/ family, PT/OT pain specialist following , adjusting pain meds, she had ANGEL 2 days ago, still her pain not controlled, she is not stable for discharge with this level of pain , may need rehab evaluation
[2018-10-29] MEDS ORDERED: Artificial Tears 18 DROP/0.9 ML EA EYE PRN (13:24)
[2018-10-29] MEDS ORDERED: Bisacodyl 10 MG SUPP PR PRN (13:24)
[2018-10-29] MEDS ORDERED: Senokot S 8.6-50 MG TAB PO PRN (13:24)
[2018-10-29] MEDS ORDERED: Loperamide HCl 2 MG CAP PO PRN (13:24)
[2018-10-29] MEDS ORDERED: Sodium Chloride 0.65% Nasal 44 ML BOT EA NARE PRN (13:24)
[2018-10-29] MEDS ORDERED: Bisacodyl 5 MG TAB PO PRN (13:24)
[2018-10-29] MEDS ORDERED: Loratadine 10 MG TAB PO PRN (13:24)
[2018-10-29] MEDS ORDERED: hydrALAZINE 20 MG/ML VIAL SLOW IVP PRN (13:24)
[2018-10-29] MEDS ORDERED: Diabetic Tussin 200 MG/10 ML UDCUP PO PRN (13:24)
[2018-10-29] MEDS ORDERED: Cepastat Lozenges 1 LOZ PO PRN (13:24)
[2018-10-29] MEDS ORDERED: Zolpidem Tartrate 5 MG TAB PO PRN (13:24)
[2018-10-29] MEDS: Lidocaine Patch Removal 1 EACH TOP SCH (20:07)
[2018-10-29] MEDS: Ketorolac Tromethamine 30 MG/ML VIAL IVP PRN (21:37)
[2018-10-29] MEDS: Morphine 4 MG/ML VIAL SLOW IVP PRN (21:38)
[2018-10-30] MEDS: oxyCODONE/Acetaminophen 5 mg/325 mg Tablet PO PRN ×4 (00:33→18:20)
[2018-10-30] MEDS: tiZANidine HCl 4 MG TAB PO SCH ×4 (00:33→18:20)
[2018-10-30 06:34] LABS: #Basophils 0.1 thou/uL (0.0-0.2); #Eosinphils 0.2 thou/uL (0.0-0.7); #Lymphocytes 2.1 thou/uL (1.20-3.40); #Monocytes 0.6 thou/uL (0.11-0.59); #Neutrophils 4.3 thou/uL (1.40-6.50); %Basophils 0.8 % (0.0-1.0); %Eosinophils 2.7 % (0.0-10.0); %Lymphocytes 28.7 % (21.0-51.0); %Monocytes 8.2 % (0.0-10.0); %Neutrophils 59.7 % (42.0-75.0); Hemoglobin 11.6 g/dL (12.0-16.0); Mean Corpuscular HGB CONC 33.2 g/dL (32.0-36.0); Mean Corpuscular Hemoglobin 28.8 pg (27.0-31.0); Mean Corpuscular Volume 86.8 fL (78.0-98.0); Mean Platelet Volume 8.5 fL (7.4-10.4); Platelet Count 277 thou/uL (130-400); RBC Distribution Width 13.4 % (11.5-14.5); Red Blood Cell (RBC) Count 4.03 mill/uL (4.20-5.40); White Blood Cell (WBC) Count 7.2 thou/uL (4.8-10.8)
[2018-10-30 06:59] LABS: Anion Gap 12 mmol/L (10-20); BUN (Urea Nitrogen) 20 mg/dL (7.0-18.7); Calc. Creatinine Clearance 146 mL/min (70-130); Calcium 9.6 mg/dL (7.8-10.44); Carbon Dioxide 28 mmol/L (22-29); Chloride 104 mmol/L (98-107); Estimated GFR-MDRD 87; Glucose 94 mg/dL (70-105); Potassium 4.6 mmol/L (3.5-5.1); Sodium 139 mmol/L (136-145)
[2018-10-30] MEDS: Pregabalin 75 MG CAP PO SCH ×3 (08:23→21:29)
[2018-10-30] MEDS: Enoxaparin Sodium 40 MG/0.4 ML SYRINGE SC SCH (08:23)
[2018-10-30] MEDS: Lidocaine 5% Patch TD SCH ×2 (08:24→08:30)
[2018-10-30] MEDS: Polyethylene Glycol 3350 17 GM Packet PO SCH (08:24)
[2018-10-30] MEDS ORDERED: Ibuprofen 200 MG TAB PO PRN (12:00)
--- NOTE | 2018-10-30 12:14 | PDOC.HOSPP ---
- Subjective Encounter Date: 10/30/18 Encounter Time: 09:00 Subjective: pt still has lot of back pain and spasm, unable to ambulate, had BM Patient seen and examined. No overnight events - Objective Vital Signs & Weight: Vital Signs (12 hours) Temp Pulse Resp BP Pulse Ox 10/30/18 11:40 98.4 F 71 16 133/84 96 10/30/18 07:22 97.8 F 60 16 128/89 96 10/30/18 03:57 97.8 F 58 L 16 117/76 96 10/30/18 00:27 97.7 F 65 16 132/85 95 Weight Weight 200 lb I&O: 10/29/18 10/30/18 10/31/18 06:59 06:59 06:59 Intake Total 1659 1282 Balance 1659 1282 Result Diagrams: 10/30/18 06:24 10/30/18 06:24 Hospitalist ROS - Review of Systems Eyes: denies: pain, vision change, conjunctivae inflammation, eyelid inflammation, redness, other ENT: denies: ear pain, ear discharge, nose pain, nose discharge, nose congestion , mouth pain, mouth swelling, throat pain, throat swelling, other Respiratory: denies: cough, dry, shortness of breath, hemoptysis, SOB with excertion, pleuritic pain, sputum, wheezing, other Cardiovascular: denies: chest pain, palpitations, orthopnea, paroxysmal noc. dyspnea, edema, light headedness, other Gastrointestinal: denies: nausea, vomitting, abdominal pain, diarrhea, constipation, melena, hematochezia, other Genitourinary: denies: dysuria, frequency, incontinence, hematuria, retention, other Musculoskeletal: reports: back pain, leg pain. denies: neck pain, shoulder pain , arm pain, hand pain, foot pain, other - Medication Medications: Active Medications Generic Name Dose Route Start Last Admin Trade Name Freq PRN Reason Stop Dose Admin Acetaminophen 650 mg 10/25/18 08:13 10/26/18 09:49 Tylenol PO 650 mg Q4H PRN Administration Headache/Fever/Mild Pain (1-3) Bisacodyl 10 mg 10/29/18 13:24 10/29/18 16:17 Dulcolax PO 10 mg DAILYPRN PRN Administration Constipation Bisacodyl 10 mg 10/29/18 13:24 10/29/18 13:51 Dulcolax NE 10 mg DAILYPRN PRN Administration Constipation Enoxaparin Sodium 40 mg 10/29/18 09:00 10/30/18 08:23 Lovenox SC 40 mg 0900 FERNANDO Administration Lidocaine 1 patch 10/25/18 09:00 10/30/18 08:30 Lidoderm 5% Patch TD Not Given DAILY FERNANDO Miscellaneous Medication 1 each 10/25/18 21:00 10/29/18 20:07 Lidocaine Patch Removal TOP 1 each 2100 FERNANDO Administration Miscellaneous Medication 25 mg 10/29/18 09:00 10/30/18 08:25 Movantik PO Not Given DAILY FERNANDO Morphine Sulfate 4 mg 10/25/18 08:14 10/29/18 21:38 Morphine SLOW IVP 4 mg Q4H PRN Administration Pain Ondansetron HCl 4 mg 10/25/18 08:13 10/26/18 11:59 Zofran IVP 4 mg Q6H PRN Administration Nausea/Vomiting Oxycodone/Acetaminophen 2 tab 10/29/18 21:23 10/30/18 06:21 Percocet 5/325 PO 2 tab Q6H PRN Administration Moderate to Severe Pain (6-10) Polyethylene Glycol 17 gm 10/30/18 09:00 10/30/18 08:24 Miralax PO 17 gm DAILY FERNANDO Administration Pregabalin 75 mg 10/27/18 21:00 10/30/18 08:23 Lyrica PO 75 mg BID FERNANDO Administration Sodium Chloride 10 ml 10/26/18 21:00 10/30/18 08:25 Flush - Normal Saline IVF 10 ml Q12HR FERNANDO Administration Tizanidine HCl 4 mg 10/27/18 18:00 10/30/18 06:21 Zanaflex PO 4 mg Q6HR FERNANDO Administration - Exam General Appearance: NAD, awake alert Eye: PERRL, anicteric sclera ENT: normocephalic atraumatic, no oropharyngeal lesions Neck: supple, symmetric, no JVD Heart: RRR, no murmur, no gallops, no rubs Respiratory: CTAB, no wheezes, no rales Gastrointestinal: soft, non-tender, non-distended, normal bowel sounds, no palpable masses Extremities: no cyanosis, no clubbing, no edema Skin: normal turgor, no lesions Neurological: CN's grossly intact, no focal deficits Musculoskeletal: normal tone, normal strength Psychiatric: normal affect, normal behavior Hosp A/P (1) Acute left lumbar radiculopathy Code(s): M54.16 - RADICULOPATHY, LUMBAR REGION Status: Acute (2) Obesity (BMI 30.0-34.9) Code(s): E66.9 - OBESITY, UNSPECIFIED Status: Chronic (3) Constipation Code(s): K59.00 - CONSTIPATION, UNSPECIFIED Status: Resolved (4) Anemia, normocytic normochromic Code(s): D64.9 - ANEMIA, UNSPECIFIED Status: Chronic (5) Hypokalemia Code(s): E87.6 - HYPOKALEMIA Status: Resolved (6) Dermoid cyst of ovary Status: Chronic Qualifiers: Laterality: right Qualified Code(s): D27.0 - Benign neoplasm of right ovary - Plan old records reviewed/req, plan discussed w/ family, PT/OT pain specialist following , adjusting pain meds, she had ANGEL 3 days ago, still her pain not controlled, she is not stable for discharge with this level of pain , may need rehab evaluation pt wanted to get neurosurgeon opinion will change to inpt status
[2018-10-30] MEDS: Lidocaine Patch Removal 1 EACH TOP SCH (21:30)
[2018-10-31] MEDS: oxyCODONE/Acetaminophen 5 mg/325 mg Tablet PO PRN ×4 (00:16→18:23)
[2018-10-31] MEDS: tiZANidine HCl 4 MG TAB PO SCH ×4 (00:16→18:22)
[2018-10-31] MEDS: Lidocaine 5% Patch TD SCH (08:58)
[2018-10-31] MEDS: Pregabalin 75 MG CAP PO SCH ×3 (09:00→20:17)
[2018-10-31] MEDS: Polyethylene Glycol 3350 17 GM Packet PO SCH (09:02)
[2018-10-31] MEDS: Enoxaparin Sodium 40 MG/0.4 ML SYRINGE SC SCH (09:03)
--- NOTE | 2018-10-31 11:05 | PRG ---
DATE OF SERVICE: 10/30/2018 SERVICE: Pain Management SUBJECTIVE: The patient still reports continued pain rated as 6/10. She reports ANGEL is not providing enough functional relief to participate with Physical Therapy as well as activities of daily living. She is tolerating bed exercises, however, has not been able to ambulate thus far. She continues to take the Percocet 10/325 mg 1 q.6, however, continues to have some breakthrough pain reported. Pain remains in the low back with radicular pain down the left lateral extremity in L5-S1 dermatomal distribution. She does report having a bowel movement yesterday. OBJECTIVE: VITAL SIGNS: Blood pressure 133/84, temperature is 98.4, heart rate 71, respirations 16. She is 96% on room air. Pain is 6/10 at rest. GENERAL APPEARANCE: The patient is awake, alert, and oriented x3, appears to be in no distress. She is lying flat in bed with her mother at the bedside. She appears to be comfortable. HEENT: Atraumatic and normocephalic. CARDIOVASCULAR: No peripheral edema. Pulses are palpable in all extremities. RESPIRATORY: Bilateral, equal lung expansion with no respiratory stress on exam. No labored breathing. ABDOMEN: Soft, nontender, and nondistended. MUSCULOSKELETAL: Continues to have [id number] paraspinal tenderness in the left lower lumbar. Positive straight leg raise on the left in the supine position at 30 degrees. Right lower extremity strength continues to be 5/5. Left straight leg raise against resistance is -4/5 with moderate pain. Pain with left dorsiflexion and plantarflexion, strength is 4/5. Sensation to temperature and touch bilaterally is intact and equal. Gait is not assessed due to the patient's immobility. The patient is refusing to sit at side of bed for assessment for reflexes. NEUROLOGIC: The patient remains alert and oriented x3. No clonus. No sensory or neurological deficits. ASSESSMENT AND PLAN: Lumbar radicular pain. The patient is status post transforaminal epidural steroid injection on the left at L5-S1 72 hours ago with continued report of 30% to 40% relief only. The epidural steroid injection has not been effective enough to improve functional activities or allow her to work with Physical Therapy. Plan to continue neuropathic medicines. We will increase Lyrica from b.i.d. to 75 mg tablets t.i.d., continue muscle relaxants and narcotics. Recommendation to continue support from Physical Therapy for transfers, mobility, and activities of daily living function. Once again if the patient is able to discharge home on oral medications, she will need followup in outpatient Pain Management Clinic in 2 weeks for possible repeat transforaminal epidural steroid injection #2. We will await Neurosurgical evaluation since the patient has had limited relief with epidural steroid injection. Job ID: [id number]
--- NOTE | 2018-10-31 11:45 | PDOC.HOSPP ---
- Subjective Encounter Date: 10/31/18 Encounter Time: 11:43 Subjective: severe, intractable pain left lateral leg, hip to ankle - Objective Vital Signs & Weight: Vital Signs (12 hours) Temp Pulse Resp BP Pulse Ox 10/31/18 11:16 97.8 F 67 16 114/78 94 L 10/31/18 08:16 98.0 F 66 16 123/84 96 10/31/18 04:00 98.0 F 70 16 108/74 95 10/31/18 00:00 97.5 F L 80 16 112/73 94 L Weight Weight 200 lb I&O: 10/30/18 10/31/18 11/01/18 06:59 06:59 06:59 Intake Total 1282 600 Balance 1282 600 Result Diagrams: 10/30/18 06:24 10/30/18 06:24 Hospitalist ROS - Medication Medications: Active Medications Generic Name Dose Route Start Last Admin Trade Name Freq PRN Reason Stop Dose Admin Acetaminophen 650 mg 10/25/18 08:13 10/26/18 09:49 Tylenol PO 650 mg Q4H PRN Administration Headache/Fever/Mild Pain (1-3) Bisacodyl 10 mg 10/29/18 13:24 10/29/18 16:17 Dulcolax PO 10 mg DAILYPRN PRN Administration Constipation Bisacodyl 10 mg 10/29/18 13:24 10/29/18 13:51 Dulcolax [place] 10 mg DAILYPRN PRN Administration Constipation Enoxaparin Sodium 40 mg 10/29/18 09:00 10/31/18 09:03 Lovenox SC 40 mg 0900 FERNANDO Administration Lidocaine 1 patch 10/25/18 09:00 10/31/18 08:58 Lidoderm 5% Patch TD Not Given DAILY FERANNDO Miscellaneous Medication 1 each 10/25/18 21:00 10/30/18 21:30 Lidocaine Patch Removal TOP 1 each 2100 FERNANDO Administration Miscellaneous Medication 25 mg 10/29/18 09:00 10/30/18 08:25 Movantik PO Not Given DAILY FERNANDO Morphine Sulfate 4 mg 10/25/18 08:14 10/29/18 21:38 Morphine SLOW IVP 4 mg Q4H PRN Administration Pain Ondansetron HCl 4 mg 10/25/18 08:13 10/26/18 11:59 Zofran IVP 4 mg Q6H PRN Administration Nausea/Vomiting Oxycodone/Acetaminophen 2 tab 10/29/18 21:23 10/31/18 06:32 Percocet 5/325 PO 2 tab Q6H PRN Administration Moderate to Severe Pain (6-10) Polyethylene Glycol 17 gm 10/30/18 09:00 10/31/18 09:02 Miralax PO 17 gm DAILY FERNANDO Administration Pregabalin 75 mg 10/30/18 15:00 10/31/18 09:00 Lyrica PO 75 mg TID FERNANDO Administration Sodium Chloride 10 ml 10/26/18 21:00 10/31/18 09:03 Flush - Normal Saline IVF 10 ml Q12HR FERNANDO Administration Tizanidine HCl 4 mg 10/27/18 18:00 10/31/18 06:32 Zanaflex PO 4 mg Q6HR FERNANDO Administration - Exam Neck: no JVD Heart: RRR, no murmur Respiratory: CTAB Gastrointestinal: soft, non-tender, no palpable masses Extremities: no edema Hosp A/P (1) Lumbar radiculopathy, acute Code(s): M54.16 - RADICULOPATHY, LUMBAR REGION Status: Acute (2) Anemia, normocytic normochromic Code(s): D64.9 - ANEMIA, UNSPECIFIED Status: Chronic (3) Dermoid cyst of ovary Status: Chronic Qualifiers: Laterality: right Qualified Code(s): D27.0 - Benign neoplasm of right ovary (4) Obesity (BMI 30.0-34.9) Code(s): E66.9 - OBESITY, UNSPECIFIED Status: Chronic - Plan pain , physical findings, MRI consistent with lumbar disc syndrome. with current pain level, surgery may be best alternative
[2018-10-31] MEDS: Lidocaine Patch Removal 1 EACH TOP SCH (20:15)
[2018-11-01] MEDS: tiZANidine HCl 4 MG TAB PO SCH ×5 (00:22→23:47)
[2018-11-01] MEDS: oxyCODONE/Acetaminophen 5 mg/325 mg Tablet PO PRN ×5 (00:22→23:47)
[2018-11-01] MEDS: Pregabalin 75 MG CAP PO SCH ×3 (09:23→20:19)
[2018-11-01] MEDS: Enoxaparin Sodium 40 MG/0.4 ML SYRINGE SC SCH (09:24)
[2018-11-01] MEDS: Polyethylene Glycol 3350 17 GM Packet PO SCH (09:24)
[2018-11-01] MEDS: Lidocaine 5% Patch TD SCH (09:24)
--- NOTE | 2018-11-01 14:35 | PDOC.HOSPP ---
- Subjective Encounter Date: 11/01/18 Encounter Time: 14:34 Subjective: radicular pain persists requiring narcotic analgesics parenterally - Objective Vital Signs & Weight: Vital Signs (12 hours) Temp Pulse Resp BP BP Pulse Ox 11/01/18 11:10 97.4 F L 81 16 137/85 96 11/01/18 08:00 98.2 F 66 16 110/76 97 11/01/18 07:57 98.2 F 66 16 110/76 97 11/01/18 04:20 98.1 F 77 16 113/74 97 Weight Weight 200 lb I&O: 10/31/18 11/01/18 11/02/18 06:59 06:59 06:59 Intake Total 600 Balance 600 Result Diagrams: 10/30/18 06:24 10/30/18 06:24 Hospitalist ROS - Medication Medications: Active Medications Generic Name Dose Route Start Last Admin Trade Name Freq PRN Reason Stop Dose Admin Acetaminophen 650 mg 10/25/18 08:13 10/26/18 09:49 Tylenol PO 650 mg Q4H PRN Administration Headache/Fever/Mild Pain (1-3) Bisacodyl 10 mg 10/29/18 13:24 10/29/18 16:17 Dulcolax PO 10 mg DAILYPRN PRN Administration Constipation Bisacodyl 10 mg 10/29/18 13:24 10/29/18 13:51 Dulcolax [place] 10 mg DAILYPRN PRN Administration Constipation Enoxaparin Sodium 40 mg 10/29/18 09:00 11/01/18 09:24 Lovenox SC 40 mg 0900 FERNANDO Administration Lidocaine 1 patch 10/25/18 09:00 11/01/18 09:24 Lidoderm 5% Patch TD Not Given DAILY FERNANDO Miscellaneous Medication 1 each 10/25/18 21:00 10/31/18 20:15 Lidocaine Patch Removal TOP Not Given 2100 FERNANDO Miscellaneous Medication 25 mg 10/29/18 09:00 11/01/18 09:25 Movantik PO Not Given DAILY FERNANDO Morphine Sulfate 4 mg 10/25/18 08:14 10/29/18 21:38 Morphine SLOW IVP 4 mg Q4H PRN Administration Pain Ondansetron HCl 4 mg 10/25/18 08:13 10/26/18 11:59 Zofran IVP 4 mg Q6H PRN Administration Nausea/Vomiting Oxycodone/Acetaminophen 2 tab 10/29/18 21:23 11/01/18 12:57 Percocet 5/325 PO 2 tab Q6H PRN Administration Moderate to Severe Pain (6-10) Polyethylene Glycol 17 gm 10/30/18 09:00 11/01/18 09:24 Miralax PO 17 gm DAILY FERNANDO Administration Pregabalin 75 mg 10/30/18 15:00 11/01/18 09:23 Lyrica PO 75 mg TID FERNANDO Administration Sodium Chloride 10 ml 10/26/18 21:00 11/01/18 09:25 Flush - Normal Saline IVF 10 ml Q12HR FERNANDO Administration Tizanidine HCl 4 mg 10/27/18 18:00 11/01/18 12:57 Zanaflex PO 4 mg Q6HR FERNANDO Administration - Exam Neck: no JVD Heart: RRR, no murmur Respiratory: CTAB Gastrointestinal: soft, normal bowel sounds Extremities: no edema Hosp A/P (1) Lumbar radiculopathy, acute Code(s): M54.16 - RADICULOPATHY, LUMBAR REGION Status: Acute (2) Anemia, normocytic normochromic Code(s): D64.9 - ANEMIA, UNSPECIFIED Status: Chronic (3) Dermoid cyst of ovary Status: Chronic Qualifiers: Laterality: right Qualified Code(s): D27.0 - Benign neoplasm of right ovary (4) Obesity (BMI 30.0-34.9) Code(s): E66.9 - OBESITY, UNSPECIFIED Status: Chronic - Plan pain , physical findings, MRI consistent with lumbar disc syndrome. with current pain level, surgery planned for tomorrow
[2018-11-01] MEDS: Lidocaine Patch Removal 1 EACH TOP SCH (20:17)
[2018-11-02] MEDS: tiZANidine HCl 4 MG TAB PO SCH ×4 (05:48→23:43)
[2018-11-02] MEDS ORDERED: Levofloxacin 500 mg/D5W 100 ml Premix Bag ONE (08:19)
[2018-11-02] MEDS ORDERED: Clindamycin/D5W 900 mg/50 ml Premix Bag ONE (08:19)
[2018-11-02] MEDS: Enoxaparin Sodium 40 MG/0.4 ML SYRINGE SC SCH (08:27)
[2018-11-02] MEDS: Polyethylene Glycol 3350 17 GM Packet PO SCH (08:28)
[2018-11-02] MEDS: Lidocaine 5% Patch TD SCH (08:28)
[2018-11-02] MEDS: Pregabalin 75 MG CAP PO SCH ×3 (08:28→20:39)
--- NOTE | 2018-11-02 08:29 | PRG ---
DATE OF SERVICE: 11/02/2018 Ms. Engle is a 38-year-old female, who was admitted on the October 24 for intractable left leg pain. She has had imaging performed, which revealed the presence of a left L5 disk herniation with impingement on the descending left S1 nerve root. Over this period of time, there has been an effort to treat her symptoms nonsurgically in the way of medications and an inpatient epidural steroid injection. Despite these efforts, she has continued to struggle with pain such that she is unable to get out of bed. She is flat in bed upon the time of my visit. She has not been able to weightbear. She does report numbness. Her motor exam is limited by pain limiting movements, although she does not believe she has any significant weakness and grossly, she does not on exam. I met with her and her mother this morning in the room and discussed with them the diagnosis, the images, and all of her treatment options. She is here to move forward surgically, which would be a left L5 diskectomy. I reviewed with them the risks, benefits, and alternatives to surgical procedure and I answered all other questions. They provided informed consent. The plan will be to move forward with left L5 diskectomy this morning. Job ID: [id number]
[2018-11-02] MEDS ORDERED: Fentanyl 100 MCG/2 ML VIAL ONE ×3 (08:33→10:28)
[2018-11-02] MEDS ORDERED: Midazolam HCl 2 mg/2 ml Vial ONE (08:41)
[2018-11-02] MEDS ORDERED: Promethazine HCl 25 MG/ML VIAL IM PRN (09:29)
[2018-11-02] MEDS ORDERED: Promethazine HCl 25 MG/ML VIAL SLOW IVP PRN (09:29)
[2018-11-02] MEDS ORDERED: Ondansetron HCl/PF 4 MG/2 ML Vial IVP PRN (09:29)
[2018-11-02] MEDS ORDERED: Bupivacaine HCl 0.5%/Epinephrine 1:200,000/PF 30 ml Vial ONE (09:35)
[2018-11-02] MEDS ORDERED: Promethazine HCl 25 MG/ML VIAL ONE (10:11)
[2018-11-02] MEDS ORDERED: Rocuronium Bromide 10 MG/ML (10ML VIAL) ONE (12:16)
[2018-11-02] MEDS ORDERED: Ondansetron PF 4 MG/2 ML Vial ONE (12:16)
[2018-11-02] MEDS ORDERED: Dexamethasone 20 MG/5 ML VIAL ONE (12:16)
[2018-11-02] MEDS ORDERED: Lidocaine 1% PF 5 ML VIAL ONE (12:16)
[2018-11-02] MEDS ORDERED: PROPOFOL 200 MG/20 ML VIAL ONE (12:16)
[2018-11-02] MEDS ORDERED: Ketorolac Tromethamine 30 MG/ML VIAL ONE (12:16)
[2018-11-02] MEDS ORDERED: Glycopyrrolate 0.2 MG/ML 5 ML SYRINGE ONE (12:16)
--- NOTE | 2018-11-02 13:07 | PDOC.HOSPP ---
- Subjective Encounter Date: 11/02/18 Encounter Time: 13:06 Subjective: nauseated post op, tolerating ice chips - Objective Vital Signs & Weight: Vital Signs (12 hours) Temp Pulse Resp BP Pulse Ox 11/02/18 10:55 98.0 F 65 16 106/64 100 11/02/18 07:38 98.4 F 71 14 106/71 91 L 11/02/18 04:10 98.0 F 83 16 119/83 96 Weight Weight 200 lb I&O: 11/01/18 11/02/18 11/03/18 06:59 06:59 06:59 Intake Total 480 Balance 480 Result Diagrams: 10/30/18 06:24 10/30/18 06:24 Hospitalist ROS - Medication Medications: Active Medications Generic Name Dose Route Start Last Admin Trade Name Freq PRN Reason Stop Dose Admin Acetaminophen 650 mg 10/25/18 08:13 10/26/18 09:49 Tylenol PO 650 mg Q4H PRN Administration Headache/Fever/Mild Pain (1-3) Bisacodyl 10 mg 10/29/18 13:24 10/29/18 16:17 Dulcolax PO 10 mg DAILYPRN PRN Administration Constipation Bisacodyl 10 mg 10/29/18 13:24 10/29/18 13:51 Dulcolax [place] 10 mg DAILYPRN PRN Administration Constipation Enoxaparin Sodium 40 mg 10/29/18 09:00 11/02/18 08:27 Lovenox SC Not Given 0900 FERNANDO Lidocaine 1 patch 10/25/18 09:00 11/02/18 08:28 Lidoderm 5% Patch TD Not Given DAILY FERNANDO Miscellaneous Medication 1 each 10/25/18 21:00 11/01/18 20:17 Lidocaine Patch Removal TOP Not Given 2100 FERNANDO Miscellaneous Medication 25 mg 10/29/18 09:00 11/02/18 08:28 Movantik PO Not Given DAILY FERNANDO Morphine Sulfate 4 mg 10/25/18 08:14 10/29/18 21:38 Morphine SLOW IVP 4 mg Q4H PRN Administration Pain Ondansetron HCl 4 mg 10/25/18 08:13 10/26/18 11:59 Zofran IVP 4 mg Q6H PRN Administration Nausea/Vomiting Oxycodone/Acetaminophen 2 tab 10/29/18 21:23 11/01/18 23:47 Percocet 5/325 PO 2 tab Q6H PRN Administration Moderate to Severe Pain (6-10) Polyethylene Glycol 17 gm 10/30/18 09:00 11/02/18 08:28 Miralax PO Not Given DAILY FERNANDO Pregabalin 75 mg 10/30/18 15:00 11/02/18 08:28 Lyrica PO Not Given TID FERNANDO Sodium Chloride 10 ml 10/26/18 21:00 11/02/18 08:28 Flush - Normal Saline IVF Not Given Q12HR FERNANDO Tizanidine HCl 4 mg 10/27/18 18:00 11/02/18 12:37 Zanaflex PO Not Given Q6HR FERNANDO - Exam Neck: no JVD Heart: RRR, no murmur Respiratory: CTAB, no wheezes Gastrointestinal: soft, normal bowel sounds Extremities: no edema Hosp A/P (1) Lumbar radiculopathy, acute Code(s): M54.16 - RADICULOPATHY, LUMBAR REGION Status: Acute (2) Anemia, normocytic normochromic Code(s): D64.9 - ANEMIA, UNSPECIFIED Status: Chronic (3) Dermoid cyst of ovary Status: Chronic Qualifiers: Laterality: right Qualified Code(s): D27.0 - Benign neoplasm of right ovary (4) Obesity (BMI 30.0-34.9) Code(s): E66.9 - OBESITY, UNSPECIFIED Status: Chronic - Plan post op discectomy, some nausea, OW doing well
--- NOTE | 2018-11-02 16:44 | OP ---
DATE OF PROCEDURE: 11/02/2018 WHEEL POLISHER: Carlos Manriquez PA-C INDICATIONS FOR PROCEDURE: Pain and numbness. DIAGNOSIS: Left S1 radiculopathy in the setting of left L5 disk herniation. PROCEDURE PERFORMED: Left L5 diskectomy. ANESTHESIA: General. DESCRIPTION OF PROCEDURE: The patient was brought into the operating room and placed under general anesthesia. She was flipped from the supine to prone position on the operating room table. A linear incision was planned over the L5 segment. After prepping and draping and after an appropriate preoperative pause, the incision was created. The soft tissues were swept left of midline. A self-retaining retractor was placed in the wound for optimal exposure. After confirming the appropriate level with C-arm fluoroscopy, a high-speed cutting drill bit as well as 2, 3, and 4 mm Kerrisons was used to perform a laminectomy along the inferior aspect of L5 and the superior aspect of S1. The descending S1 nerve root was identified and found to be displaced posteriorly due to a large inferiorly migrated L5 disk fragment. This disk fragment was carefully removed until the descending S1 nerve root was well decompressed. The wound was then irrigated. Hemostasis was maintained throughout. The wound was then closed in anatomic layers, and a pressure dressing was applied. There were no known procedural complications. Job ID: [id number]
[2018-11-02] MEDS: oxyCODONE/Acetaminophen 5 mg/325 mg Tablet PO PRN ×2 (17:00→23:43)
[2018-11-02] MEDS: Lidocaine Patch Removal 1 EACH TOP SCH (20:38)
[2018-11-03] MEDS: tiZANidine HCl 4 MG TAB PO SCH ×2 (05:20→12:11)
[2018-11-03] MEDS: Pregabalin 75 MG CAP PO SCH (09:32)
[2018-11-03] MEDS: Enoxaparin Sodium 40 MG/0.4 ML SYRINGE SC SCH (09:33)
[2018-11-03] MEDS: Lidocaine 5% Patch TD SCH (09:33)
[2018-11-03] MEDS: Polyethylene Glycol 3350 17 GM Packet PO SCH (09:33)
[2018-11-03] MEDS: oxyCODONE/Acetaminophen 5 mg/325 mg Tablet PO PRN (10:02)
--- NOTE | 2018-11-03 14:30 | DIS ---
DATE OF ADMISSION: 10/24/2018 DATE OF DISCHARGE: 11/03/2018 PRIMARY CARE PROVIDER: None. DISPOSITION: Discharged home. FINAL DIAGNOSES: L5-S1 lumbar radiculopathy, severe back pain, benign neoplasm of the ovary, status post laminectomy, diskectomy, L5-S1. DISCHARGE MEDICINES: None. CODE STATUS: Full. ALLERGIES: TO CODEINE. PENDING AT TIME OF DISCHARGE: Nothing. HOSPITAL COURSE: The patient was admitted to the [facility] with intractable back, hip pain on the left. She had been treated outpatient with Valium 5 for muscle spasm, Medrol Dosepak. MRI was done, which revealed cystic mass on the right adnexa consistent with dermoid cyst. Lumbar spine MRI revealed large left paracentral disk perfusion at L5-S1 contacting the left S1 nerve root and displacing the nerve root posteriorly. On 10/27/2018, Leatha Vieyra MD did an epidural steroid injection in appropriate location. The patient continued to have disabling radicular pain, unable to get up. She was seen by Carlos Manriquez PA-C on 10/27. Conservative therapy was recommended. On 10/31, I saw the patient for the first time, surgery was recommended, on 11/02/2018, the patient underwent L5 diskectomy. The patient has had total relief of pain. She is feeling well with no fever, chills, sweats, chest pain, shortness of breath, etc. She has been seen by Neurosurgery, who recommends that she can go home when medically ready. She has been seen by Physical Therapy, who states she is doing well with current limitations which includes log-rolling, no prolonged sitting, etc. She is being discharged home to follow up with Dr. Torres, per his recommendations, nursing staff is instructing on wound care. Job ID: [id number]
[2018-11-03 15:06] VITALS: BP 100/66; TEMP 98.5
== END 2018-11-03 14:27 | disposition home or self-care (01) | DRG 520 ==
LOC: ERS 16:19 → SURG B 22:50 → OBSVTOIN 22:50
PROVIDERS: ADMIT Hospitalist; ATTEND Hospitalist
PROC: 3E0R33Z Introduction of Anti-inflammatory into Spinal Canal, Percutaneous Approach (ICD-10-PCS; 2018-10-27)
PROC: 0SB40ZZ Excision of Lumbosacral Disc, Open Approach (ICD-10-PCS; principal; 2018-11-02)
DX: M51.17 Intervertebral disc disorders with radiculopathy, lumbosacral region (principal); D27.0 Benign neoplasm of right ovary; E66.9 Obesity, unspecified; D64.9 Anemia, unspecified; E87.6 Hypokalemia; K59.00 Constipation, unspecified; Z68.32 Body mass index [BMI] 32.0-32.9, adult; Z88.0 Allergy status to penicillin; Z88.5 Allergy status to narcotic agent
CPT/HCPCS: 36415; 72131; 72158; 72197; 76000; 76856; 80048; 80053; 84703; 85025; 96374; 96375; 96376; A9577; J0131; J0670; J1040; J1100; J1650; J1885; J1956; J2001; J2250; J2270; J2405; J2550; J2704; J3010; J3490; Q9966; S0020

== ENCOUNTER 2018-11-05 22:23 | Emergency (ER) | payer SELFPAY ==
[2018-11-05 23:19] LABS: #Basophils 0.1 thou/uL (0.0-0.2); #Eosinphils 0.1 thou/uL (0.0-0.7); #Lymphocytes 1.8 thou/uL (1.20-3.40); #Monocytes 0.5 thou/uL (0.11-0.59); #Neutrophils 8.1 thou/uL (1.40-6.50); %Basophils 0.6 % (0.0-1.0); %Eosinophils 0.9 % (0.0-10.0); %Lymphocytes 16.8 % (21.0-51.0); %Monocytes 4.8 % (0.0-10.0); Hemoglobin 11.3 g/dL (12.0-16.0); Mean Corpuscular HGB CONC 33.6 g/dL (32.0-36.0); Mean Corpuscular Hemoglobin 28.7 pg (27.0-31.0); Mean Corpuscular Volume 85.6 fL (78.0-98.0); Mean Platelet Volume 8.7 fL (7.4-10.4); Platelet Count 277 thou/uL (130-400); RBC Distribution Width 13.8 % (11.5-14.5); Red Blood Cell (RBC) Count 3.92 mill/uL (4.20-5.40); White Blood Cell (WBC) Count 10.5 thou/uL (4.8-10.8)
[2018-11-05] MEDS ORDERED: Diazepam 10 MG/2 ML SYRINGE ONE (23:22)
[2018-11-05] MEDS ORDERED: Dexamethasone 10 MG/ML VIAL ONE (23:22)
[2018-11-05] MEDS ORDERED: Morphine 4 MG/ML VIAL ONE (23:22)
[2018-11-05 23:40] LABS: ALT (SGPT) 23 U/L (8-55); AST (SGOT) 16 U/L (5-34); Albumin 3.9 g/dL (3.5-5.0); Alkaline Phosphatase 65 U/L (40-150); Anion Gap 13 mmol/L (10-20); BUN (Urea Nitrogen) 13 mg/dL (7.0-18.7); Bilirubin, Total 0.3 mg/dL (0.2-1.2); Calc. Creatinine Clearance 0 mL/min (70-130); Calcium 9.6 mg/dL (7.8-10.44); Carbon Dioxide 28 mmol/L (22-29); Chloride 100 mmol/L (98-107); Estimated GFR-MDRD 83; Globulin 2.9 g/dL (2.4-3.5); Glucose 99 mg/dL (70-105); Potassium 3.6 mmol/L (3.5-5.1); Protein, Total 6.8 g/dL (6.0-8.3); Sodium 137 mmol/L (136-145)
[2018-11-05] MEDS ORDERED: Ondansetron PF 4 MG/2 ML Vial ONE (23:45)
[2018-11-06] MEDS ORDERED: Morphine 4 MG/ML VIAL ONE (00:45)
[2018-11-06] MEDS ORDERED: Ketorolac Tromethamine 30 MG/ML VIAL ONE (00:45)
[2018-11-06] MEDS ORDERED: Pregabalin 75 MG CAP PO SCH (02:45)
== END 2018-11-06 03:33 | disposition home or self-care (01) ==
LOC: ERS 22:23
DX: M54.16 Radiculopathy, lumbar region (principal)
CPT/HCPCS: 36415; 80053; 85025; 96374; 96375; 96376; J1100; J1885; J2270; J2405; J3360

== ENCOUNTER 2022-05-08 08:20 | Outpatient (CLI) | payer BC | END 2022-05-08 08:21 | disposition home or self-care (01) | LOC: BICMAMMO 08:20 | PROVIDERS: ATTEND Family Medicine Sports Medicine | DX: Z12.31 Encounter for screening mammogram for malignant neoplasm of breast (principal); N64.89 Other specified disorders of breast | CPT/HCPCS: 77063; 77067 ==

== ENCOUNTER 2022-06-08 08:29 | Outpatient (CLI) | payer BC | END 2022-06-08 08:30 | disposition home or self-care (01) | LOC: BICMAMMO 08:29 | PROVIDERS: ATTEND Family Medicine Sports Medicine | DX: N64.89 Other specified disorders of breast (principal) | CPT/HCPCS: G0279 ==

== ENCOUNTER 2024-10-31 13:23 | Outpatient (CLI) | payer BC | END 2024-10-31 13:24 | disposition home or self-care (01) | LOC: BICRAD 13:23 | PROVIDERS: ATTEND Family Medicine Sports Medicine | DX: U07.1 COVID-19 (principal) | CPT/HCPCS: 71046 ==